=== PATIENT | female | born 1935 | race Caucasian/White ===

== ENCOUNTER 2019-05-23 08:34 | Emergency (ER) | payer OTHER ==
--- NOTE | 2019-05-23 09:47 | RAD REPORT ---
EXAM DESCRIPTION: RAD - Hip Right 2 View - 05/23/2019 9:35 am CLINICAL HISTORY: Pelvic pain, right hip pain, pelvic trauma COMPARISON: None. FINDINGS: AP and frog-leg views of the right hip were obtained. There is no fracture or dislocation of the proximal femur. Femoral head maintains smooth rounded contour. No AVN or focal femoral head a bnormality. No periarticular abnormality. Pelvic fracture is present at the junction of the superior and inferior rain i.e. with the pubic sym physis. Sacral ala appears to be intact. No acute SI joint abnormality. Remainder of the right hemipe lvis is intact. IMPRESSION: Pelvic fracture at the junction of the superior and inferior pubic rami with the pubic s ymphysis. No hip joint or proximal right femur abnormality.
--- NOTE | 2019-05-23 09:48 | RAD REPORT ---
EXAM DESCRIPTION: RAD - Pelvis - 05/23/2019 9:35 am CLINICAL HISTORY: Fall, pelvic pain COMPARISON: None. TECHNIQUE: AP imaging of the pelvis was obtained. FINDINGS: Lower lumbar degenerative changes are present not fully assessed. Minimal SI joint degener ative change. Sacral ala appear to be intact though assessment is limited by osteopenia and overlying bowel content. Patient has fracture of the superior and inferior pubic rami on the right at the junction with the pu bic symphysis. No displacement or angulation. No pathologic component. Left-side pubic symphysis is i ntact. No other fracture of the bony pelvis seen. No fracture or dislocation of either proximal femur. IMPRESSION: Nondisplaced fracture of the right-side pubic symphysis at the junction with the superio r and inferior pubic rami.
--- NOTE | 2019-05-23 10:16 | ER ---
Nurse's Notes [facility] Name: Aline Chairez Age: 83 yrs Sex: Female : 1935 Arrival Date: 05/23/2019 Time: 08:37 Bed 18 Private MD: Diagnosis: Multiple fractures of pelvis without disruption of pelvic ring Presentation: 05/23 08:45 Presenting complaint: Low back pain x 1 week, tailbone and groin pain after sitting hb down in bathtub too hard 2 days ago. Transition of care: Transition of care: patient was not received from another setting of care. Onset of symptoms was May 16, 2019. Risk Assessment: Do you want to hurt yourself or someone else? Patient reports no desire to harm self or others. Initial Sepsis Screen: Does the patient meet any 2 criteria? No. Patient's initial sepsis screen is negative. Does the patient have a suspected source of infection? No. Patient's initial sepsis screen is negative. Care prior to arrival: None. 08:45 Method Of Arrival: Ambulatory hb 08:45 Acuity: SARAH 4 hb Historical: - Allergies: 08:46 No Known Allergies; hb - Immunization history:: Adult Immunizations up to date. - Social history:: Smoking status: Patient/guardian denies using tobacco. - Ebola Screening: : No symptoms or risks identified at this time. Screenin:34 Abuse screen: Denies threats or abuse. Nutritional screening: No deficits noted. ae4 Tuberculosis screening: No symptoms or risk factors identified. Fall Risk Fall in past 12 months (25 points). No secondary diagnosis (0 pts). No IV (0 pts). Ambulatory Aid- None/Bed Rest/Nurse Assist (0 pts). Gait- Weak (10 pts.). Mental Status- Oriented to own ability (0 pts). Assessment: 08:50 General: Appears in no apparent distress. uncomfortable, well groomed, Behavior is ae4 calm, cooperative. Pain: Complains of pain in right femoral area. Neuro: Level of Consciousness is awake, alert, obeys commands. 08:55 General: Appears uncomfortable, Behavior is. Cardiovascular: Patient's skin is warm and ae4 dry. Respiratory: Airway is patent Respiratory effort is even, unlabored, Respiratory pattern is regular, symmetrical. GI: No signs and/or symptoms were reported involving the gastrointestinal system. : No signs and/or symptoms were reported regarding the genitourinary system. EENT: No signs and/or symptoms were reported regarding the EENT system. Derm: Skin is pink, warm \T\ dry. Musculoskeletal: No visile deformity. Patient is favoring right leg. Injury Description: Patient states she bent down to get into the bathroom and hit her right buttocks on the edge of the bathtub. Vital Signs: 08:46 BP 161 / 49; Pulse 76; Resp 16; Temp 97.1; Pulse Ox 100% on R/A; Weight 64.41 kg; hb Height 5 ft. 2 in. (157.48 cm); Pain 8/10; 10:31 BP 126 / 45; Pulse 67; Resp 16; Pulse Ox 96% on R/A; ae4 08:46 Body Mass Index 25.97 (64.41 kg, 157.48 cm) hb ED Course: 08:37 Patient arrived in ED. as 08:39 Rufino Cooper, RN is Primary Nurse. ae4 08:46 Triage completed. hb 08:46 Arm band placed on. hb 08:52 Bed in low position. Call light in reach. Adult w/ patient. Pulse ox on. NIBP on. ae4 08:55 Saqib Velasco PA is PHCP. [facility] 08:55 Sha Perera MD is Attending Physician. jmm 09:35 Pelvis XRAY In Process Unspecified. EDMS 09:35 Hip Right 2 View XRAY In Process Unspecified. EDMS 10:14 Zahra Armenta MD is Hospitalizing Provider. jmm 10:34 Len Ceballos MD is Referral Physician. jmm 11:06 No provider procedures requiring assistance completed. Patient did not have IV access ae4 during this emergency room visit. Administered Medications: No medications were administered Outcome: 10:15 Decision to Hospitalize by Provider. jmm 10:35 Discharge ordered by . jmm 11:06 Discharged to home via wheelchair. ae4 11:06 Condition: stable 11:06 Discharge instructions given to patient, significant other, Instructed on discharge instructions, follow up and referral plans. Demonstrated understanding of instructions, Prescriptions given X 1. 11:06 Patient left the ED. ae4 Signatures: Dispatcher [employer] EDMS MickaSaqib soria PA PA jmm Martinez, Amelia as Baxter, Heather, RN RN hb Rufino Cooper RN RN ae4
--- NOTE | 2019-05-23 10:16 | EDPHYS ---
Physician Documentation [facility] Name: Aline Chairez Age: 83 yrs Sex: Female : 1935 Arrival Date: 05/23/2019 Time: 08:37 Bed 18 Private MD: ED Physician Sha Perera HPI: 05/23 09:16 This 83 yrs old Female presents to ER via Ambulatory with complaints of Hip jmm Pain. 09:16 The patient presents with pain that is acute. Onset: The symptoms/episode jmm began/occurred acutely, 2 day(s) ago. Modifying factors: The patient symptoms are alleviated by nothing, the patient symptoms are aggravated by movement. Onset: The symptoms/episode began/occurred acutely, 2 day(s) ago. This is an 83 year old female that presents to the ED with complaints of right gluteal pain which radiates into her groin. Symptoms began after slipping in the bathtub. Patient denies numbness or weakness to the right leg. Historical: - Allergies: 08:46 No Known Allergies; hb - Immunization history:: Adult Immunizations up to date. - Social history:: Smoking status: Patient/guardian denies using tobacco. - Ebola Screening: : No symptoms or risks identified at this time. ROS: 09:16 Constitutional: Negative for fever, chills, and weight loss, Cardiovascular: Negative jmm for chest pain, palpitations, and edema, Respiratory: Negative for shortness of breath, cough, wheezing, and pleuritic chest pain, Abdomen/GI: Negative for abdominal pain, nausea, vomiting, diarrhea, and constipation. 09:16 MS/extremity: Positive for injury or acute deformity, pain. 09:16 All other systems are negative. Exam: 09:16 Constitutional: This is a well developed, well nourished patient who is awake, alert, jmm and in no acute distress. Head/Face: atraumatic. Eyes: EOMI, no conjunctival erythema appreciated ENT: Moist Mucus Membranes Neck: Trachea midline, Supple Chest/axilla: Normal chest wall appearance and motion. Cardiovascular: Regular rate and rhythm. No edema appreciated Respiratory: Normal respirations, no respiratory distress appreciated Abdomen/GI: Non distended, soft Back: Normal ROM Skin: General appearance color normal 09:16 Musculoskeletal/extremity: right gluteal pain on palpation, painful rom appreciated to the right hip joint. . 09:16 Skin: Appearance: Color: normal in color. 09:16 Neuro: Orientation: is normal, Mentation: is normal, Memory: is normal. 09:16 Psych: Behavior/mood is pleasant, cooperative. Vital Signs: 08:46 BP 161 / 49; Pulse 76; Resp 16; Temp 97.1; Pulse Ox 100% on R/A; Weight 64.41 kg; hb Height 5 ft. 2 in. (157.48 cm); Pain 8/10; 10:31 BP 126 / 45; Pulse 67; Resp 16; Pulse Ox 96% on R/A; ae4 08:46 Body Mass Index 25.97 (64.41 kg, 157.48 cm) hb MDM: 09:01 Patient medically screened. [facility] 10:13 Data reviewed: vital signs, nurses notes. Counseling: I had a detailed discussion with joana the patient and/or guardian regarding: the historical points, exam findings, and any diagnostic results supporting the discharge/admit diagnosis, radiology results, the need for further work-up and treatment in the hospital. ED course: I discussed the patient with Dr. Armenta whom accepted admission. . 10:32 ED course: Dr. Armenta evaluated the patient. Now recommends outpatient follow up. . [facility] 05/23 09:09 Order name: Pelvis XRAY; Complete Time: 09:54 [facility] 05/23 09:09 Order name: Hip Right 2 View XRAY; Complete Time: 09:54 [facility] Administered Medications: No medications were administered Disposition: 12:03 Co-signature as Attending Physician, Sha Perera MD I agree with the assessment and kdr plan of care. Disposition: 05/23/19 10:35 Discharged to Home. Impression: Multiple fractures of pelvis without disruption of pelvic ring. - Condition is Stable. - Discharge Instructions: Simple Pelvic Fracture, Adult. - Prescriptions for Tylenol- Codeine #3 300-30 mg Oral Tablet - take 1 tablet by ORAL route every 6 hours As needed; 20 tablet. - Medication Reconciliation Form, Thank You Letter, Antibiotic Education, Prescription Opioid Use form. - Follow up: Len Ceballos MD; When: 2 - 3 days; Reason: Recheck today's complaints, Continuance of care, Re-evaluation by your physician. Signatures: Dispatcher [employer] EDMS Sha Perera MD MD [facility] Saqib Velasco PA PA [facility] Leny Melton, RN RN Rufino Cooper RN RN ae4 Corrections: (The following items were deleted from the chart) 10:34 10:15 Hospitalization Ordered by Zahra Armenta MD for Inpatient Admission. Preliminary [facility] diagnosis is Multiple fractures of pelvis with stable disruption of pelvic ring. Bed requested for Telemetry/MedSurg (Inpatient). Status is Inpatient Admission. Condition is Stable. Problem is new. Symptoms are unchanged. UTI on Admission? No. jmm 11:06 10:35 05/23/2019 10:35 Discharged to Home. Impression: Multiple fractures of pelvis ae4 without disruption of pelvic ring. Condition is Stable. Forms are Medication Reconciliation Form, Thank You Letter, Antibiotic Education, Prescription Opioid Use. Follow up: Dr. Len Ceballos; When: 2 - 3 days; Reason: Recheck today's complaints, Continuance of care, Re-evaluation by your physician. [facility]
[2019-05-23 11:14] VITALS: BP 126/45; O2SAT 96
[2019-05-25 22:21] VITALS: TEMP 97.1
== END 2019-05-23 11:06 | disposition home or self-care (01) ==
LOC: ER 08:34
DX: S32.82XA Multiple fractures of pelvis without disruption of pelvic ring, initial encounter for closed fracture (principal); W18.2XXA Fall in (into) shower or empty bathtub, initial encounter; Y93.9 Activity, unspecified; Y92.9 Unspecified place or not applicable
CPT/HCPCS: 72170; 99283

== ENCOUNTER 2023-02-14 16:07 | Emergency (ER) | payer OTHER ==
--- OUTSIDE RECORDS SUMMARY | 2023-02-14 16:10 | XMS REPORT | Continuity of Care Document ---
:1935 Author Organization [facility] t Address [address] [place] [address] [address] [place] [address] Care Team Providers Name Role Phone Fabien Armenta Attending Clinician Unavailable Payers Payer Name Policy Type Policy Number Effective Date Expiration Date S erika AETNA C1 [id number] [facility] MEDICARE MB [id number] [facility] AETNA C1 [id number] [facility] MEDICARE MB [id number] [facility] MEDICARE MB [id number] [facility] AETNA C1 [id number] [facility] Problems Condition Condition Condition Status Onset Resolution Last Treating Co mments Source Name Details Category Date Date Treatment Clinician Date [id number] Arthritis Problem Active Co mmon [id number] of knee, [facility] Allergies, Adverse Reactions, Alerts This patient has no known allergies or adverse reactions. Social History Social Habit Start Date Stop Date Quantity Comments Source Sex Assigned At Com mon [facility] History of Tobacco Use Co mmon [facility] Smoking Status Start Date Stop Date Source Never Smoker [facility] Medications Ordered Filled Start Stop Current Ordering Indication Dosage Frequency Signature Comments Components Source Medication Medication Date Date Medication? Clinician (SIG) Name Name PreserVisio PreserVisio No PreserVisi n AREDS n AREDS on AREDS NIFEdipine NIFEdipine No NIFEdipine ER ER ER Celecoxib Celecoxib No Celecoxib Levothyroxi Levothyroxi No Levothyrox ne Sodium ne Sodium ine Sodium Oxybutynin Oxybutynin No Oxybutynin Chloride Chloride Chloride Calcium + D Calcium + D No Calcium + D Valsartan Valsartan No Valsartan Carvedilol Carvedilol No Carvedilol hydroCHLORO hydroCHLORO No hydroCHLOR thiazide thiazide Othiazide Omeprazole Omeprazole No Omeprazole Atorvastati Atorvastati No Atorvastat n Calcium n Calcium in Calcium Prolia Prolia No Prolia Stool Stool No Stool Softener Softener Softener Levothyroxi Levothyroxi No Levothyrox ne Sodium ne Sodium ine Sodium Valsartan Valsartan No Valsartan Calcium + D Calcium + D No Calcium + D Carvedilol Carvedilol No Carvedilol Atorvastati Atorvastati No Atorvastat n Calcium n Calcium in Calcium Celecoxib Celecoxib No Celecoxib Oxybutynin Oxybutynin No Oxybutynin Chloride Chloride Chloride Stool Stool No Stool Softener Softener Softener Prolia Prolia No Prolia NIFEdipine NIFEdipine No NIFEdipine ER ER ER hydroCHLORO hydroCHLORO No hydroCHLOR thiazide thiazide Othiazide PreserVisio PreserVisio No PreserVisi n AREDS n AREDS on AREDS Omeprazole Omeprazole No Omeprazole Carvedilol Carvedilol No Carvedilol [facility] Prolia Prolia No Prolia Common [facility] Celecoxib Celecoxib No Celecoxib [facility] Oxybutynin Oxybutynin No Oxybutynin Common Chloride Chloride Chloride [facility] Levothyroxi Levothyroxi No Levothyrox Common ne Sodium ne Sodium ine Sodium [facility] hydroCHLORO hydroCHLORO No hydroCHLOR Common thiazide thiazide Othiazide Sp [facility] NIFEdipine NIFEdipine No NIFEdipine Common ER ER ER [facility] Omeprazole Omeprazole No Omeprazole [facility] Calcium + D Calcium + D No Calcium + Common D [facility] Stool Stool No Stool Common Softener Softener Softener [facility] Atorvastati Atorvastati No Atorvastat Common n Calcium n Calcium in Calcium [facility] Valsartan Valsartan No Valsartan Common [facility] PreserVisio PreserVisio No PreserVisi Common n AREDS n AREDS on AREDS [facility] Vital Signs Vital Name Observation Time Observation Value Comments Source height 2020-12-13 09:15:00 62 [in_i] Common [facility] weight 2020-12-13 09:15:00 143 [lb_av] Common [facility] temperature 2020-12-13 09:15:00 97.3 [degF] Common [facility] 2020-12-13 09:15:00 26.15 kg/m2 [facility] blood pressure 2020-12-13 09:15:00 130 mm[Hg] [facility] - systolic [facility] blood pressure 2020-12-13 09:15:00 76 mm[Hg] [facility] - diastolic [facility] height 2020-12-02 14:30:00 62 [in_i] Common [facility] weight 2020-12-02 14:30:00 143 [lb_av] Common [facility] temperature 2020-12-02 14:30:00 97.3 [degF] Common [facility] bmi 2020-12-02 14:30:00 26.15 kg/m2 Common [facility] blood pressure 2020-12-02 14:30:00 130 mm[Hg] [facility] - systolic [facility] blood pressure 2020-12-02 14:30:00 74 mm[Hg] [facility] - diastolic [facility] height 2020-11-25 08:30:00 62 [in_i] Common [facility] weight 2020-11-25 08:30:00 143.7 [lb_av] Common [facility] temperature 2020-11-25 08:30:00 97.7 [degF] Common S [facility] bmi 2020-11-25 08:30:00 26.28 kg/m2 Common S pirit [facility] blood pressure 2020-11-25 08:30:00 134 mm[Hg] [facility] - systolic [facility] blood pressure 2020-11-25 08:30:00 84 mm[Hg] [facility] - diastolic [facility] Procedures This patient has no known procedures. Encounters Start End Encounter Admission Attending Care Care Encounter Source Date/Time Date/Time Type Type Clinicians Facility Department ID 2021-06-22 Outpatient Armenta, STLMLC STLMLC [id number] Common 13:21:18 Fabien [id number] [facility] 2020-12-13 2020-12-13 (IN/ASP) STLMLC STLMLC [id number] C ommon 00:00:00 00:00:00 INJ ASP [facility] 2020-12-02 2020-12-02 (IN/ASP) STLMLC STLMLC [id number] C ommon 00:00:00 00:00:00 INJ ASP [facility] 2020-11-25 2020-11-25 OFFICE STLMLC STLMLC [id number] Co mmon 00:00:00 00:00:00 VISIT [facility] it PT LEVEL 4 - [facility] Results This patient has no known results.
[2023-02-14] MEDS ORDERED: methocarbamoL 500 MG TAB ONE (17:03)
[2023-02-14] MEDS ORDERED: HYDROCODONE/APAP 5/325 MG TAB ONE (18:02)
--- NOTE | 2023-02-14 18:07 | RAD REPORT ---
EXAM DESCRIPTION: CT - C Spine Wo Con - 02/14/2023 5:20 pm CLINICAL HISTORY: Neck pain, radiates to the left COMPARISON: None. TECHNIQUE: Axial thin cut noncontrast CT images of the cervical spine were obtained with sagittal an d coronal reconstruction images generated and reviewed. All CT scans are performed using dose optimization technique as appropriate and may include automated exposure control or mA/KV adjustment according to patient size. FINDINGS: Cervical vertebral body height and alignment are normal. No disk space narrowing. No fract ure or acute bony abnormality. Multilevel degenerative changes with disc height loss at C5-6 and variable degrees of foraminal narro wing secondary to uncovertebral facet arthropathy most pronounced at C5-6 bilaterally and at C6-7 on the left. No paraspinal mass or hematoma. IMPRESSION: No acute traumatic fracture or subluxation. Degenerative changes as above.
--- NOTE | 2023-02-14 18:44 | ER ---
Nurse's Notes [facility] Name: Aline Chairez Age: 87 yrs Sex: Female : 1935 Arrival Date: 02/14/2023 Time: 16:07 Bed 11 Private MD: Diagnosis: Cervicalgia;Sprain of ligaments of cervical spine;Elevated blood-pressure reading, without diagnosis of hypertension Presentation: 02/14 16:22 Chief complaint: Patient states: Neck pain that started a few days ago, starts at base ph of scalp and radiates to L side, denies injury. Coronavirus screen: Vaccine status: Patient reports receiving the 2nd dose of the covid vaccine. Ebola Screen: No symptoms or risks identified at this time. Acute neurological deficit: none identified. Initial Sepsis Screen: Does the patient meet any 2 criteria? No. Patient's initial sepsis screen is negative. Does the patient have a suspected source of infection? No. Patient's initial sepsis screen is negative. Risk Assessment: Do you want to hurt yourself or someone else? Patient reports no desire to harm self or others. Onset of symptoms was February 14, 2023. 16:22 Method Of Arrival: Ambulatory ph 16:22 Acuity: SARAH 3 ph Historical: - Allergies: 16:24 No Known Allergies; ph - Immunization history:: Adult Immunizations up to date. - Social history:: Smoking status: Patient denies any tobacco usage or history of. Screenin:05 [facility] ED Fall Risk Assessment (Adult) Score/Fall Risk Level 0 - 2 = Low Risk ll1 Oriented to surroundings, Maintained a safe environment, Educated pt \T\ family on fall prevention, incl call for assistance when getting out of bed, Hourly rounding (assess needs \T\ fall precautionary measures) done. Abuse screen: Denies threats or abuse. Nutritional screening: No deficits noted. Tuberculosis screening: No symptoms or risk factors identified. Assessment: 16:54 General: Appears uncomfortable, Behavior is calm, cooperative, appropriate for age. ll1 Pain: Complains of pain in neck Pain currently is 8 out of 10 on a pain scale. Quality of pain is described as aching. Neuro: Level of Consciousness is awake, alert, obeys commands, Moves all extremities. Full function Gait is steady, Speech is normal. Musculoskeletal: Reports pain in neck. 17:55 Reassessment: No changes from previously documented assessment. Patient and/or family ll1 updated on plan of care and expected duration. Pain level reassessed. 18:56 Reassessment: No changes from previously documented assessment. Patient and/or family ll1 updated on plan of care and expected duration. Pain level reassessed. Patient is alert, oriented x 3, equal unlabored respirations, skin warm/dry/pink. Vital Signs: 16:22 Pulse 66; Resp 18; Temp 97.9; Pulse Ox 99% on R/A; Weight 47.17 kg; Height 5 ft. 2 in. ;ph 16:25 BP 155 / 60; ph 18:56 BP 151 / 61; Pulse 61; Resp 17; ll1 16:22 Body Mass Index 19.02 (47.17 kg, 157.48 cm) ph ED Course: 16:11 Patient arrived in ED. im 16:24 Triage completed. ph 16:24 Arm band placed on Patient placed in waiting room, Patient notified of wait time. ph 16:31 Usha Del Angel is Attending Physician. ci 17:04 Maddie Boyd, RN is Primary Nurse. ll1 17:05 Patient has correct armband on for positive identification. Bed in low position. Call ll1 light in reach. 17:20 C Spine W/O Contrast In Process Unspecified. EDMS 18:57 Provided Education on: n/a. ll1 18:57 No provider procedures requiring assistance completed. Patient did not have IV access ll1 during this emergency room visit. Administered Medications: 16:54 Drug: Methocarbamol PO 500 mg PO once Route: PO; ll1 17:52 Follow up: Response: No adverse reaction; Pain is decreased; RASS: Alert and Calm (0) ll1 17:52 Drug: HYDROcodone-acetaminophen PO 5 mg-325 mg 1 tabs PO once Route: PO; ll1 18:56 Follow up: Response: No adverse reaction; Pain is decreased; RASS: Alert and Calm (0) ll1 Medication: 18:57 VIS not applicable for this client. ll1 Outcome: 18:43 Discharge ordered by . ci 18:57 Discharged to home ambulatory, ll1 18:57 Condition: stable 18:57 Discharge instructions given to patient, family, Instructed on discharge instructions, follow up and referral plans. medication usage, Demonstrated understanding of instructions, follow-up care, medications, Prescriptions given X 2, 18:57 Patient left the ED. ll1 Signatures: Dispatcher [employer] Ira Montelongo RN RN ph Lewis, Lynsay, RN RN ll1 Lesia ValdovinoskkeliuUsha
--- NOTE | 2023-02-14 18:44 | EDPHYS ---
Physician Documentation [facility] Name: Aline Chairez Age: 87 yrs Sex: Female : 1935 Arrival Date: 02/14/2023 Time: 16:07 Bed 11 Private MD: ED Physician Usha Del Angel HPI: 02/14 16:39 This 87 yrs old Female presents to ER via Ambulatory with complaints of Neck Pain, ci >24Hrs Old. 16:39 Patient is an 87-year-old female who presents to the ED with chief complaint of ci left-sided neck pain that began about a week ago. Patient reports pain is aching in nature, rated 7/10. Initially subsided a week ago but resumed last night. She denies paresthesias to upper extremities. Denies trauma, fever, chills. No upper extremity weakness. She has tried Voltaren gel, lidocaine, Tylenol with no improvement.. Historical: - Allergies: 16:24 No Known Allergies; ph - Immunization history:: Adult Immunizations up to date. - Social history:: Smoking status: Patient denies any tobacco usage or history of. ROS: 16:40 Constitutional: Negative for chills, fatigue, fever, ci 16:40 Cardiovascular: Negative for chest pain, orthopnea, palpitations, 16:40 Respiratory: Negative for cough, shortness of breath, wheezing, 16:40 Abdomen/GI: Negative for abdominal pain, nausea, vomiting, and diarrhea, 16:40 MS/extremity: Positive for Neck pain., Exam: 16:40 Constitutional: This is a well developed, well nourished patient who is awake, alert, ci and in no acute distress. Head/Face: Normocephalic, atraumatic. Eyes: Pupils equal round and reactive to light, extra-ocular motions intact. Lids and lashes normal. Conjunctiva and sclera are non-icteric and not injected. Cornea within normal limits. Periorbital areas with no swelling, redness, or edema. ENT: Nares patent. No nasal discharge, no septal abnormalities noted. Tympanic membranes are normal and external auditory canals are clear. Oropharynx with no redness, swelling, or masses, exudates, or evidence of obstruction, uvula midline. Mucous membranes moist. Neck: Trachea midline, no thyromegaly or masses palpated, and no cervical lymphadenopathy. Supple, full range of motion without nuchal rigidity, or vertebral point tenderness. No Meningismus. Left cervical paraspinal muscle tenderness to palpation. Chest/axilla: Normal chest wall appearance and motion. Nontender with no deformity. No lesions are appreciated. Cardiovascular: Regular rate and rhythm with a normal S1 and S2. No gallops, murmurs, or rubs. Normal PMI, no JVD. No pulse deficits. Respiratory: Lungs have equal breath sounds bilaterally, clear to auscultation and percussion. No rales, rhonchi or wheezes noted. No increased work of breathing, no retractions or nasal flaring. Abdomen/GI: Soft, non-tender, with normal bowel sounds. No distension or tympany. No guarding or rebound. No evidence of tenderness throughout. Back: No spinal tenderness. No costovertebral tenderness. Full range of motion. Skin: Warm, dry with normal turgor. Normal color with no rashes, no lesions, and no evidence of cellulitis. MS/ Extremity: Pulses equal, no cyanosis. Neurovascular intact. Full, normal range of motion. Neuro: Awake and alert, GCS 15, oriented to person, place, time, and situation. Cranial nerves II-XII grossly intact. Motor strength 5/5 in all extremities. Sensory grossly intact. Cerebellar exam normal. Normal gait. Psych: Awake, alert, with orientation to person, place and time. Behavior, mood, and affect are within normal limits. Vital Signs: 16:22 Pulse 66; Resp 18; Temp 97.9; Pulse Ox 99% on R/A; Weight 47.17 kg; Height 5 ft. 2 in. ;ph 16:25 BP 155 / 60; ph 18:56 BP 151 / 61; Pulse 61; Resp 17; ll1 16:22 Body Mass Index 19.02 (47.17 kg, 157.48 cm) ph MDM: 16:31 Patient medically screened. ci 16:40 Differential diagnosis: arthritis, Cervical Raiculopathy Cervical Spondylosis cervical ci strain, Degenerative Disc Disease. Data reviewed: vital signs, nurses notes, old medical records. Historians other than the Patient: Spouse/Significant Other: . ED course: Patient arrived to the ED hemodynamically stable and in no acute distress. She has no obvious signs of trauma to the neck. No C-spine tenderness on exam, no increased warmth, erythema. Muscle strength upper extremity 5/5, sensation to light touch is intact, cap refills less than 2 seconds, radial pulse 2+. Patient symptoms likely secondary to muscle strains, will obtain CT. Will administer muscle relaxant and reassess.. 18:40 Counseling: I had a detailed discussion with the patient and/or guardian regarding the ci historical points, exam findings, and any diagnostic results supporting the discharge/admit diagnosis, the presence of at least one elevated blood pressure reading (>120/80) during this emergency department visit, lab results, radiology results, the need for outpatient follow up, to return to the emergency department if symptoms worsen or persist or if there are any questions or concerns that arise at home. Response to treatment: the patient's symptoms have markedly improved after treatment. ED course: CT cervical spine unremarkable. Patient's pain improved per stable for discharge with outpatient follow-up.. 02/14 16:39 Order name: C Spine W/O Contrast; Complete Time: 18:38 ci 02/14 18:38 Interpretation: No acute disease: Per Radiologist's finding(s): IMPRESSION: No acute ci traumatic fracture or subluxation. Degenerative changes as above. Signed By: Tommy Wilkerson Signed AT: 02/14/23 1807. Administered Medications: 16:54 Drug: Methocarbamol PO 500 mg PO once Route: PO; ll1 17:52 Follow up: Response: No adverse reaction; Pain is decreased; RASS: Alert and Calm (0) ll1 17:52 Drug: HYDROcodone-acetaminophen PO 5 mg-325 mg 1 tabs PO once Route: PO; ll1 18:56 Follow up: Response: No adverse reaction; Pain is decreased; RASS: Alert and Calm (0) ll1 Disposition Summary: 02/14/23 18:43 Discharge Ordered Notes: Location: Home ci Condition: Stable ci Diagnosis - Cervicalgia ci - Sprain of ligaments of cervical spine ci - Elevated blood-pressure reading, without diagnosis of hypertension ci Discharge Instructions: - Discharge Summary Sheet ci - Musculoskeletal Pain ci - Neck Exercises ci - Preventing Hypertension ci Forms: - Medication Reconciliation Form ci - Thank You Letter ci - Antibiotic Education ci - Prescription Opioid Use ci - Patient Portal Instructions ci - Leadership Thank You Letter ci Prescriptions: - naproxen 500 mg Oral tablet - take 1 tablet ORAL route 2 times per day as needed for pain; 20 tablet; ci Refills: 0, Product Selection Permitted - tizanidine 2 mg Oral tablet - take 1 tablet ORAL route every 12 hours as needed for muscle spasticity; 20 ci tablet; Refills: 0, Product Selection Permitted Signatures: Dispatcher [employer] Ira Montelongo, DERRICK MEZA [facility], DERRICK Perkins RN ll Bean, Usha
[2023-02-14 20:11] VITALS: TEMP 97.9; O2SAT 99
[2023-02-14 20:14] VITALS: BP 151/61
== END 2023-02-14 18:57 | disposition home or self-care (01) ==
LOC: ER 16:07
DX: S13.4XXA Sprain of ligaments of cervical spine, initial encounter (principal); R03.0 Elevated blood-pressure reading, without diagnosis of hypertension
CPT/HCPCS: 72125